=== PATIENT | female | born 1975 | race Caucasian/White ===

== ENCOUNTER → 2023-03-12 13:40 | Outpatient (BNVA) | payer OTHER, SELFPAY | PROVIDERS: Visit Provider Podiatrist Foot & Ankle Surgery | DX: S82.851A Displaced trimalleolar fracture of right lower leg, initial encounter for closed fracture; W17.2XXA Fall into hole, initial encounter; Y93.K1 Activity, walking an animal | CPT/HCPCS: 73610 ==

== ENCOUNTER 2023-03-16 10:17 | Day surgery (SDC) | payer OTHER, SELFPAY ==
[2023-03-16] VITALS (11 sets, daily range): BP systolic 93–158; BP diastolic 58–106; PULSE 67–109; RESP 11–21; TEMP 36.1–36.4; O2SAT 95–100; BMI 24.7
--- NOTE | 2023-03-16 | XR_ITS ---
WS: [id number] Right ankle, C-arm fluoroscopy views, 03/16/2023 Clinical Data: or pic, orif ankle Comparison: Right ankle, 03/12/2023 Findings: Dr. Shukla repaired the trimalleolar fracture of the right ankle. Impression: Internal fixation of trimalleolar fracture of the right ankle.
[2023-03-16] MEDS: gabapentin 300 mg Capsule PO (10:59)
[2023-03-16] MEDS: sodium chloride 0.9% 1,000 ML 30 ML IV (10:59)
[2023-03-16] MEDS: acetaminophen 1,000 MG/100 ML PIGGYBACK 400 MG IV (10:59)
--- NOTE | 2023-03-16 11:50 | P.HPUD_ITS ---
Surgery/Procedure H&P Update DATE OF PROCEDURE: March 16, 2023 DATE H&P PERFORMED: 03/12/23 H&P UPDATE INFORMATION: I have reviewed H&P completed within last 30 days, I have examined patient prior to procedure, No changes to prior documentation and H&P is in [facility] EMR on date indicated PREOP DIAGNOSIS: Trimalleolar ankle fracture right ankle PLANNED PROCEDURE: Operation Date: 03/16/23 12:00 Proposed Procedures p ORIF right trimalleolar fracture 33931,?S82.851A(Right) - Ronn Shukla DPM
--- NOTE | 2023-03-16 11:55 | ANES.PREANE2 ---
Pre-Anesthetic Assessment Height/Weight: Height 1.6 m Weight 63.503 kg Temp Pulse Resp BP Pulse Ox O2 Del Method 97.6 F 109 H 18 158/102 98 Room Air 03/16/23 10:31 03/16/23 10:31 03/16/23 10:31 03/16/23 10:31 03/16/23 10:31 03/16/23 10:36 Preop Diagnosis: Trimalleolar ankle fracture right ankle Operation Date: 03/16/23 12:00 Proposed Procedures p ORIF right trimalleolar fracture 96904,?S82.851A(Right) - Ronn Shukla DPM Familial anesthetic complications: None Was Beta Fer taken within 24 hours: N/A Was Clonidine taken within 24 hours: N/A Last intake: Intake Last Liquid Date 03/15/23 Last Liquid Time 21:00 Last Solid Date 03/15/23 Last Solid Time 21:00 Social No alcohol and No tobacco Exam alert, oriented x 3, clear to auscultation bilaterally and regular rate & rhythm Airway Mallampati: Class I Dentition: chipped Anesthetic Plan ASA status: 1 Anesthesia: General and Regional (specify below) Risk of > 500 ml blood loss (7ml/kg in children): No Medications/Allergies Home Medications Medication Instructions Recorded Confirmed Last Taken Type Allergy Relief D-24hr 1 mg PO DAILY 03/15/23 03/15/23 03/14/23 History Black Cohosh Extract 200 mg PO DAILY 03/15/23 03/15/23 03/14/23 History One Daily For Women 1 mg PO DAILY 03/15/23 03/15/23 03/14/23 History ashwagandha extract 120 mg capsule 120 mg PO DAILY 03/15/23 03/15/23 03/14/23 History hydrocodone 5 mg-acetaminophen 325 1 tab PO Q6H PRN pain #28 tabs 03/16/23 Unknown Rx mg tablet Allergies Allergy/AdvReac Type Severity Reaction Status Date / Time Penicillins Allergy hives Verified 03/12/23 13:50 Current Medications Generic Name Dose Route Start Last Admin Trade Name Freq PRN Reason Stop Dose Admin Sodium Chloride 1,000 mls @ 30 mls/hr 03/16/23 10:45 03/16/23 10:59 Sodium Chloride 0.9% IV 03/17/23 10:44 30 mls/hr .Q24H BLAKE Administration Data Anesthesia Cardiac Studies: No Data to Display
--- NOTE | 2023-03-16 11:56 | ANES.PROC ---
Anesthesia Procedures Procedure/Date: 03/16/23 Nerve Block ^: Nerve Block 1: Main Anesthesia: general anesthesia Time Out Performed: Yes Consent: requested by attending/covering physician, from patient, from other, risks and benefits reviewed and patient agrees to proceed Nerve block location: popliteal (R) Anesthesia monitors applied: pulse oximetry, EKG, BP cuff and oxygen Nerve block position: supine Anesthetic Used: ropivicaine 0.5% (30 ml) and with decadron (4 mg) Ultrasound used to: recognize landmarks Nerve Stimulator Used?: No Interscalene/Femoral BLK: 4 stimuplex 21 g needle used for position and inplane approach, visualize local anesthetic spread and no vascular puncture identified Injection: neg aspiration of heme Patient Tolerated Procedure: well Complications: none
[2023-03-16] MEDS: scopolamine 1.5 Patch 1 PATCH TRANSDERMA (11:59)
[2023-03-16] MEDS: ceFAZolin 2,000 MG in sodium chloride 0.9% (plus) 50 ML 100 MG IV (12:18)
--- NOTE | 2023-03-16 13:59 | W.PM.BPON ---
Date of procedure: 03/16/2023 Surgeon name: Dr. Ronn Shukla D.P.M. Technology Development Intern(s) name(s): None Procedure(s) performed: Open reduction internal fixation right trimalleolar ankle fracture Description of findings: Displaced trimalleolar ankle fracture right ankle Estimated blood loss: 20 cc Tourniquet time: 69 minutes Specimen(s) removed: None Post-operative diagnosis: Trimalleolar ankle fracture right ankle
--- NOTE | 2023-03-16 14:00 | PM.OP ---
Operative Report Date of procedure: March 16, 2023 Pre-op diagnosis: Right trimalleolar ankle fracture Post-op diagnosis: Same Post-op findings: Open reduction internal fixation right trimalleolar ankle fracture. Syndesmosis stable upon stressing Procedure done: Open reduction internal fixation right trimalleolar ankle fracture CPT 18888 Implants: Anatomic fibular plate with 2.7 3.5 locking screws, 3.5 headed fully threaded screw for interfrag screw and two 3.5 mm headed partially-threaded screws for medial malleolus fracture all from [employer] Surgeon: Ronn Shukla DPM Estimated blood loss: 20 cc 69 minutes Complications: None Findings: See above Procedure: Patient is a 47-year-old female that has a history of right trimalleolar ankle fracture. Patient sustained a right trimalleolar ankle fracture while walking her dog at night and she stepped in a hole. Date of injury was 03/01/2023. The extent of the injury and the instability of the fracture pattern necessitates open reduction internal fixation. A lengthy discussion regarding the procedure, including risks and complications has been had with the patient and is noted in the recent clinic note. Written and verbal consent have been obtained. All patient questions have been answered to the patient?s satisfaction. No written or verbal guarantees have been given or implied. The patient has been NPO since midnight. The history has been reviewed and the history and physical is current. The signed consent was confirmed and placed in the patient chart. Patient imaging has been reviewed and is consistent with the diagnosis. Under mild sedation, the patient was brought into the operating room and placed on the table in the supine position. IV antibiotics were given by the anesthesia team as preoperative surgical prophylaxis. General sedation was then performed by the anesthesiateam. A popliteal block was performed by the anesthesia department. A pneumatic tourniquet was then placed about the right thigh. The operative extremity was then prepped and draped in the usual fashion. The extremity was then elevated and exsanguinated before the tourniquet was inflated to 325 mmHg. After inflation, the following procedure was then performed. Attention was directed to the lateral aspect of the right ankle where an 8 cm incision was made overlying the fibula. Dissection was carried down through subcutaneous and superficial fascia. Care was taken to protect adjacent vital structures such as the sural nerve and peroneal tendon sheath. Periosteum was incised to expose the underlying fibular fracture. The fracture was devoid of hematoma using the combination of curette and rongeur. After de voiding the fracture site from hematoma the fracture was reduced. Good reduction was confirmed on C-arm imaging. An interfrag screw was placed in standard fashion using 3.5 headed screw. An anatomic fibular plate was then placed on the lateral aspect of the fibula. Good positioning of the plate was confirmed on C-arm imaging. Distal holes of the plate were filled with 2.7 locking screws proximal the plate were filled with 3.5 mm locking screws. Attention was then directed to the medial aspect of the ankle where a 6 cm incision was made using a #15 blade. Dissection was carried down to the level of the periosteum of the medial malleolus. This was incised to expose the medial malleolus fracture which deflated of hematoma using dental pick, rongeur. A [id number] reduction clamp was used to reduce the medial malleolus to its appropriate anatomic position. 2 guidewires for the 3.5 cannulated screws were driven across the fracture site. Two 3.5 mm headed partially-threaded screws from [employer] were then inserted over the wires across the fracture. Good positioning of fractures and hardware was noted on C-arm imaging as well as clinically. The incision sites were then irrigated with copious amounts of sterile saline. The syndesmosis was stressed and was noted to be stable. Deep tissue was closed with 2-0 Vicryl followed by subcuticular closure with 3-0 Vicryl and skin closure with 3-0 nylon in horizontal mattress fashion. The incision sites were dressed with Xeroform, 4 x 4 gauze, Kerlix before the patient was placed in a well-padded below the knee posterior splint. The patient tolerated the procedure and anesthesia well and without complication. The patient was transported from the operating room to the recovery room with vital signs stable and vascular status intact to all digits of the right foot. The patient was given both written and verbal instructions to remain nonweightbearing to the operative extremity, to keep dressings/splint clean, dry and intact and to take pain medication as directed. The patient will follow-up in the outpatient setting at their scheduled appointment. The patient was discharged with my personal number and was instructed to call if any questions or issues should arise. They were discharged home once anesthesia criteria was met.
== END 2023-03-16 15:30 | disposition home or self-care (01) ==
PROVIDERS: Visit Provider Podiatrist Foot & Ankle Surgery
PROC: (CPT 27822; principal; 2023-03-16 12:00)
DX: S82.851A Displaced trimalleolar fracture of right lower leg, initial encounter for closed fracture (principal)
CPT/HCPCS: 27822; 73600; 76000; C1713; J0131; J0690; J1100; J1200; J2250; J2405; J2704; J2795; J3010; J7030

== ENCOUNTER → 2023-03-30 11:06 | Outpatient (BNVA) | payer OTHER, SELFPAY | PROVIDERS: Visit Provider Podiatrist Foot & Ankle Surgery | DX: S82.851D Displaced trimalleolar fracture of right lower leg, subsequent encounter for closed fracture with routine healing; X58.XXXD Exposure to other specified factors, subsequent encounter | CPT/HCPCS: 73610 ==

== ENCOUNTER → 2023-04-13 10:47 | Outpatient (BNVA) | payer OTHER, SELFPAY | PROVIDERS: Visit Provider Podiatrist Foot & Ankle Surgery | DX: Z98.890 Other specified postprocedural states; S82.851D Displaced trimalleolar fracture of right lower leg, subsequent encounter for closed fracture with routine healing; X58.XXXD Exposure to other specified factors, subsequent encounter | CPT/HCPCS: 73610 ==

== ENCOUNTER → 2023-04-27 09:48 | Outpatient (BNVA) | payer OTHER, SELFPAY | PROVIDERS: Visit Provider Podiatrist Foot & Ankle Surgery | DX: Z98.890 Other specified postprocedural states; S82.851D Displaced trimalleolar fracture of right lower leg, subsequent encounter for closed fracture with routine healing; X58.XXXD Exposure to other specified factors, subsequent encounter | CPT/HCPCS: 73610 ==

== ENCOUNTER → 2023-05-11 11:07 | Outpatient (BNVA) | payer OTHER, SELFPAY | PROVIDERS: Visit Provider Podiatrist Foot & Ankle Surgery | DX: S82.851D Displaced trimalleolar fracture of right lower leg, subsequent encounter for closed fracture with routine healing; X58.XXXD Exposure to other specified factors, subsequent encounter; Z98.890 Other specified postprocedural states | CPT/HCPCS: 73610 ==

== ENCOUNTER → 2023-06-08 11:15 | Outpatient (BNVA) | payer OTHER, SELFPAY | PROVIDERS: Visit Provider Podiatrist Foot & Ankle Surgery | DX: Z98.890 Other specified postprocedural states; S82.851D Displaced trimalleolar fracture of right lower leg, subsequent encounter for closed fracture with routine healing; X58.XXXD Exposure to other specified factors, subsequent encounter | CPT/HCPCS: 73610 ==

== ENCOUNTER → 2024-03-31 15:10 | Outpatient (BNVA) | payer OTHER, SELFPAY | PROVIDERS: PCP Nurse Practitioner Family; Visit Provider Nurse Practitioner Family | DX: I10 Essential (primary) hypertension (principal); R53.83 Other fatigue | CPT/HCPCS: 80053; 80061; 84439; 84443; 85025 ==

== ENCOUNTER → 2024-11-04 15:35 | Outpatient (BNVA) | payer OTHER, SELFPAY | PROVIDERS: PCP Nurse Practitioner Family; Visit Provider Nurse Practitioner Family | DX: I10 Essential (primary) hypertension (principal); R25.2 Cramp and spasm; R53.83 Other fatigue | CPT/HCPCS: 80053; 80061; 83735; 85025 ==

== ENCOUNTER → 2024-12-02 10:08 | Outpatient (BNVA) | payer OTHER, SELFPAY | PROVIDERS: PCP Nurse Practitioner Family; Visit Provider Nurse Practitioner Family | DX: D72.829 Elevated white blood cell count, unspecified (principal); E78.5 Hyperlipidemia, unspecified | CPT/HCPCS: 80061; 85025 ==